=== PATIENT | female | born 1965 | race Caucasian/White ===

== ENCOUNTER → 2019-10-06 | Emergency (ER) | payer OTHER, SELFPAY ==
[~2019-10-06] MED LIST: MORPHINE 2 MG/ML 1ML VIAL (J2270) As Ordered ONE; MORPHINE 2 MG/ML 1ML VIAL (J2270) ONE; ONDANSETRON 4MG/2ML VIAL As Ordered ONE; ONDANSETRON 4MG/2ML VIAL ONE
[2019-11-05 13:22] LABS: INR 0.95; PARTIAL THROMBOPLASTIN TIME 30.9 SECONDS (25.0-38.4); PROTHROMBIN TIME 12.8 SECONDS (11.8-14.0)
--- NOTE | 2019-11-13 16:25 | ECGEPIP ---
NORMAL SINUS RHYTHM PRIOR A/S INFARCT SEE SCANNED DOWNTIME REPORT MTDD
[2019-11-29 10:28] LABS: AMYLASE 20 U/L (25-115); CK-MB VALUE MASS 1.7 NG/ML (<3.6); CPK CREATINE PHOSPHOKINASE 29 U/L (26-192); FREE T4 1.48 NG/DL (0.76-1.46); LIPASE 25 U/L (73-393); MB/CK RELATIVE INDEX 5.86 (< OR =4); THYROID STIMULATING HORMONE 0.775 uIU/ML (0.358-3.740); TROPONIN I < 0.02 NG/ML (< 0.10)
== END | disposition short-term general hospital (02) ==
LOC: M ED 14:30
DX: I63.9 Cerebral infarction, unspecified (principal); R10.9 Unspecified abdominal pain; R29.707 NIHSS score 7; R11.2 Nausea with vomiting, unspecified; Z79.899 Other long term (current) drug therapy; Z79.01 Long term (current) use of anticoagulants; Z91.013 Allergy to seafood; Z87.891 Personal history of nicotine dependence
CPT/HCPCS: 70450; 71045; 80047; 82150; 82550; 82553; 83690; 84439; 84443; 85025; 85610; 85730; 93005; 96374; 96375; 99285; J2270; J2405